=== PATIENT | female | born 1945 | race Caucasian/White ===

== ENCOUNTER 2017-05-21 13:00 | Outpatient (CLI) | payer MEDICARE ==
[~2017-05-21] VITALS: Ht 152.4 cm; Wt 60.3 kg
[~2017-05-21 13:00] MED LIST: TRAM-21 PO
[2017-05-21] MEDS ORDERED: ceFAZolin INJECTION 1,000 MG in NS (IVPB) 100 ML IV ONE (14:15)
== END 2017-05-21 14:18 ==
LOC: PREOP 13:00
PROVIDERS: ATTEND Surgery
DX: Z01.818 Encounter for other preprocedural examination (principal); L98.9 Disorder of the skin and subcutaneous tissue, unspecified

== ENCOUNTER 2017-05-23 06:17 | Day surgery (SDC) | payer MEDICARE, OTHER ==
[~2017-05-23] VITALS: Ht 152.4 cm; Wt 60.3 kg
[2017-05-23 06:35] VITALS: BP 153/103
[2017-05-23] MEDS ORDERED: SEVOFLURANE (ULTANE) 15 ML INHAL SOLN ONE ×4 (06:37→09:00)
[2017-05-23] MEDS ORDERED: DEXAMETHASONE 10 MG/ML (DECADRON) 1 ML VIAL ONE (06:37)
[2017-05-23] MEDS ORDERED: MIDAZOLAM 2 MG/2 ML (VERSED) VIAL ONE (06:37)
[2017-05-23] MEDS ORDERED: LIDOCAINE PF 2% 5 ML (XYLOCAINE) VIAL ONE (06:37)
[2017-05-23] MEDS ORDERED: proPOfol 200 MG/20 ML (DIPRIVAN) VIAL IV ONE (06:37)
[2017-05-23] MEDS ORDERED: ONDANSETRON 4 MG/2 ML (SDV) Z0FRAN ONE (06:37)
[2017-05-23] MEDS ORDERED: fentaNYL INJECTION 100 MCG/2 ML AMP ONE (06:38)
[2017-05-23] MEDS ORDERED: ceFAZolin INJECTION 1,000 MG in NS (IVPB) 100 ML IV ONE (07:00)
[2017-05-23] MEDS ORDERED: ceFAZolin 1,000 MG (ANCEF) VIAL ONE (07:02)
[2017-05-23] MEDS ORDERED: NS (IVPB) 100 ML ONE (07:03)
[2017-05-23] MEDS ORDERED: BUP/EPI 0.5% 1:200,000 (SENSORCAINE) 30 ML VIAL ONE (07:12)
[2017-05-23] MEDS: LACTATED RINGERS 1,000 ML IV PRN ×2 (07:14→08:42)
--- NOTE | 2017-05-23 07:49 | Progress Note-Pre Operative ---
Pre-Operative Progress Note H&P Reviewed The H&P was reviewed, patient examined and no changes noted. Date Seen by Provider: May 10, 2017 Time Seen by Provider: 12:50 Date H&P Reviewed: May 23, 2017 Time H&P Reviewed: 07:49 Pre-Operative Diagnosis: Skin lesions pre-sternal region and left chest wall SARA ORTIZ MD May 23, 2017 7:49 am
[2017-05-23] MEDS ORDERED: PHENYLEPHRINE 100 MCG/ML 10 ML (ANESTHESIA) SYR ONE (08:08)
[2017-05-23] MEDS ORDERED: TRAM50TA2 PO (08:46)
--- NOTE | 2017-05-23 08:49 | Discharge Inst-Simple/Standard ---
Discharge Inst-Standard Discharge Medications New, Converted or Re-Newed RX: RX on Chart Patient Instructions/Follow Up Plan of Care/Instructions/FU: Dressings off in 48 hours. F/U with my nurse in 10 days, for suture removal Activity as Tolerated: Yes Discharge Diet: No Restrictions SARA ORTIZ MD May 23, 2017 8:48 am
--- NOTE | 2017-05-23 08:57 | Operative Report ---
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 Margins. Procedure Performed Excision Times 2 with frozen section Description of Procedure Anesthesia Type: General Estimated blood loss (mL): Minimal Specimen(s) collected/removed Skin lesions 2 Description of the Procedure Indication for the procedure: This lady presented with irregular lesion measuring 3 cm over the presternal region and a similar lesion over the left chest wall, having the appearance of skin cancers. She was offered sedation with frozen section to ensure definitive diagnosis with negative margins. Informed consent was obtained after reviewing the procedures in detail. Description of the procedures: She was placed supine on the operating table and general anesthesia induced. A gram of Ancef was administered intravenously as prophylaxis against wound infection. Sequential compression devices were placed around her legs, to minimize the risk of venous thrombosis Her chest wall was prepared and draped in the usual sterile manner 1. Excision of lesionpresternal region. Pre-preemptive analgesia was established using 0.5 percent Marcaine with epinephrine. An elliptical incision about 4 cm long by 3.5 cm in width was made and the lesion excised down to the subcutaneous tissue. It was oriented with silk sutures and sent for frozen section analysis. The pathologist confirmed actinic keratosis with a possible early squamous cell carcinoma. The margins were reported to be negative. Skin edges were approximated with 4-0 nylon, in an interrupted fashion. 2. Excision of lesion left chest wall: A similar excision was performed and the lesion was confirmed to be an actinic keratosis. Skin edges were approximated using interrupted 4-0 Vicryl, in a subcuticular fashion. Nonadherent dressings were applied. She tolerated the procedures well, was extubated in the operating room and taken to the recovery room in a stable condition. Findings of the Procedure See op report Allergies and Home Medications Allergies Coded Allergies: No Known Drug Allergies (Unverified , 04/04/12) Home Medications Tramadol HCl 50 Mg Tablet, 50 MG PO Q12H PRN for PAIN-MODERATE Prescribed by: SARA ORTIZ on 05/23/17 0846 Patient Home Medication List Home Medication List Reviewed: Yes SARA ORTIZ MD May 23, 2017 8:57 am
[2017-05-23] MEDS ORDERED: morphine INJ 10 MG/ML 1ML (SYR OR VIAL) IVP PRN (09:15)
[2017-05-23] MEDS ORDERED: ONDANSETRON 4 MG/2 ML (SDV) Z0FRAN IVP PRN (09:15)
--- NOTE | 2017-05-23 09:18 | Anesthesia-General Post-Op ---
General Patient Condition Mental Status/LOC: Same as Preop Cardiovascular: Satisfactory Nausea/Vomiting: Absent Respiratory: Satisfactory Pain: Controlled Complications: Absent Post Op Complications Complications None Follow Up Care/Instructions Patient Instructions None needed. Anesthesia/Patient Condition Patient Condition Patient is doing well, no complaints, stable vital signs, no apparent adverse anesthesia problems. No complications reported per nursing. D/C home per [facility] [place] Criteria: Yes JELENA CASTANO CRNA May 23, 2017 09:17
[2017-05-23 09:55] VITALS: BP 138/75
[2017-05-23 09:56] VITALS: BP 138/75
[2017-05-23 10:25] VITALS: BP 126/68
[2017-05-23 10:55] VITALS: BP 141/75
== END 2017-05-23 11:55 | disposition home or self-care (01) ==
LOC: SDC 06:17
PROVIDERS: ATTEND Surgery
DX: L57.0 Actinic keratosis (principal); Z11.2 Encounter for screening for other bacterial diseases; Z87.891 Personal history of nicotine dependence
CPT/HCPCS: 87081; 88305; 88331; 88332